=== PATIENT | female | born 1940 | race Caucasian/White ===

== ENCOUNTER 2016-12-10 07:06 | Day surgery (SDC) | payer MEDICARE, BC ==
--- NOTE | ~2016-12-10 | EGD ---
EGD REPORT [facility] [address] [place] [address] NAME: LUCITA DUNCAN : [birth year] STATUS : REG [facility]#: [id number] AGE: 76 ADM/REG DATE : 12/10/16 MR#: [id number] REPORT SERV DATE: 12/10/16 DICTATED BY: SHERRY MACIAS DATE: 12/10/16 REPORT STATUS : Draft TRANSCRIBED BY: [facility] DATE: 12/10/16 Endoscopy Center Patient Name: Lucita Duncan Date of : 1940 Attending MD: SHERRY MACIAS MD Procedure Date No Time: 12/10/2016 Procedure: Colonoscopy Indications: High risk colon cancer surveillance: Personal history of colonic polyps, FH of Colon Cancer - 1st degree relative, FH of Colon Cancer - multiple second-degree relatives Referring MD: JUSTINO LENZ MD Medicines: as per anesthesia Complications: No immediate complications. Procedure: Pre-Anesthesia Assessment: - ASA Grade Assessment: II - A patient with mild systemic disease. After I obtained informed consent, the scope was passed under direct vision. Throughout the procedure, the patient's blood pressure, pulse, and oxygen saturations were monitored continuously. The PCF [id number] was introduced through the anus and advanced to the cecum, identified by appendiceal orifice and ileocecal valve. The colonoscopy was performed without difficulty. The patient tolerated the procedure well. The quality of the bowel preparation was adequate to identify polyps. Findings: The perianal and digital rectal examinations were normal. A few small and large-mouthed diverticula were found in the sigmoid colon. Internal hemorrhoids were found during endoscopy and were mild. Impression: - Diverticulosis in the sigmoid colon. - Internal hemorrhoids. Recommendation: - Continue present medications. Procedure Code(s): --- Professional --- 90696, Colonoscopy, flexible, proximal to splenic flexure; diagnostic, with or without collection of specimen(s) by brushing or washing, with or without colon decompression (separate procedure) Diagnosis Code(s): --- Professional --- EGD REPORT [facility] [address] [facility] [place] [address] NAME: LUCITA DUNCAN : [birth year] [place]US : [place] [facility] [place] [id number] AGE: 76 ADM/REG DATE : 12/10/16 MR#: [id number] REPORT SERV DATE: 12/10/16 DICTATED BY: SHERRY MACIAS. DATE: 12/10/16 REPORT STATUS : Draft TRANSCRIBED BY: [employer] DATE: 12/10/16 K64.8, Other hemorrhoids K57.30, Diverticulosis of large intestine without perforation or abscess without bleeding Z86.010, Personal history of colonic polyps Z80.0, Family history of malignant neoplasm of digestive organs CPT copyright 2013 [employer]. All rights reserved. The codes documented in this report are preliminary and upon nursery supervisor review may be revised to meet current compliance requirements. SHERRY MACIAS MD 12/10/2016 9:17 AM This report has been signed electronically. Number of Addenda: 0 Note Initiated On: 12/10/2016 8:44 AM Scope Withdrawal Time 0 hours 13 minutes 10 seconds [address] [facility] [place] [address]
[~2016-12-10 07:06] MED LIST: ACET500CAP PO; ASTELIN NAS; BIOTIN5 MG PO; ESTRACE0.5 MG PO; FLONASE NAS; LIPITOR10 PO; MELA3 PO; ROGAINE TOP; SPIRO25 PO; TEARS PURE OPH; VITAMIN B PO; VITAMIN B-121000 MC1 SL; VITAMIN D1000 UNI1 PO; [UNRECOGNIZED DRUG - OTHER]
== END 2016-12-10 23:59 | disposition home or self-care (01) ==
LOC: DMU 07:06
PROVIDERS: Internal Medicine Gastroenterology
PROC: 0DJD8ZZ Inspection of Lower Intestinal Tract, Via Natural or Artificial Opening Endoscopic (ICD-10-PCS; principal; 2016-12-10 08:30)
DX: Z12.11 Encounter for screening for malignant neoplasm of colon (principal); H91.90 Unspecified hearing loss, unspecified ear; I10 Essential (primary) hypertension; E21.5 Disorder of parathyroid gland, unspecified; K21.9 Gastro-esophageal reflux disease without esophagitis; K64.8 Other hemorrhoids; K57.30 Diverticulosis of large intestine without perforation or abscess without bleeding; G43.909 Migraine, unspecified, not intractable, without status migrainosus; M19.90 Unspecified osteoarthritis, unspecified site; Z86.010 Personal history of colon polyps; Z80.0 Family history of malignant neoplasm of digestive organs; Z88.2 Allergy status to sulfonamides; Z87.891 Personal history of nicotine dependence; Z90.89 Acquired absence of other organs; Z97.4 Presence of external hearing-aid; Z98.41 Cataract extraction status, right eye; Z98.42 Cataract extraction status, left eye; Z96.1 Presence of intraocular lens; Z98.890 Other specified postprocedural states; Z90.49 Acquired absence of other specified parts of digestive tract; Z90.710 Acquired absence of both cervix and uterus; Z79.899 Other long term (current) drug therapy; Z79.890 Hormone replacement therapy